=== PATIENT | male | born 1960 | race Caucasian/White ===

== ENCOUNTER 2017-05-04 17:09 | Emergency (ER) | payer OTHER ==
[~2017-05-04] VITALS: Ht 175.3 cm; Wt 86.4 kg
[2017-05-04] MEDS ORDERED: METO-408 PO (17:31)
[2017-05-04] MEDS ORDERED: METH40TA2 PO (17:31)
[2017-05-04] MEDS ORDERED: SULFAMETHOX/TRIMETH DS 800-160 MG/TABLET PO ONE (20:30)
[2017-05-04] MEDS ORDERED: CEPHALEXIN MONOHYDRATE 500 MG CAPSULE PO ONE (20:30)
[2017-05-04 20:54] VITALS: BP 136/85
== END 2017-05-04 21:06 | disposition home or self-care (01) ==
LOC: EMS 17:13
DX: L03.116 Cellulitis of left lower limb (principal); R59.1 Generalized enlarged lymph nodes; I10 Essential (primary) hypertension; F11.90 Opioid use, unspecified, uncomplicated
CPT/HCPCS: 93971; 99284

== ENCOUNTER 2017-09-19 00:47 | Emergency (ER) | payer OTHER ==
[~2017-09-19] VITALS: Ht 175.3 cm; Wt 81.8 kg
[~2017-09-19 00:47] MED LIST: METH40TA2 PO; METO-408 PO
[2017-09-19 03:24] VITALS: BP 135/94
== END 2017-09-19 04:18 | disposition left against medical advice (07) ==
LOC: EMS 00:48
DX: M79.671 Pain in right foot (principal); M79.672 Pain in left foot; I10 Essential (primary) hypertension; F11.90 Opioid use, unspecified, uncomplicated
CPT/HCPCS: 99281

== ENCOUNTER 2018-12-17 01:08 | Emergency (ER) | payer OTHER ==
[~2018-12-17] VITALS: Ht 175.3 cm; Wt 72.7 kg
[2018-12-17] MEDS ORDERED: METO50 PO (01:30)
[2018-12-17 04:36] VITALS: BP 142/96
[2018-12-17] MEDS ORDERED: PERTUSS(ACELL),DIPH,TET VAC/PF 0.5 ML VIAL IM ONE (05:15)
== END 2018-12-17 05:15 | disposition home or self-care (01) ==
LOC: EMS 01:14
DX: S61.212A Laceration without foreign body of right middle finger without damage to nail, initial encounter (principal); I10 Essential (primary) hypertension; F11.90 Opioid use, unspecified, uncomplicated; Z79.899 Other long term (current) drug therapy; W26.8XXA Contact with other sharp object(s), not elsewhere classified, initial encounter; Y93.89 Activity, other specified; Y92.89 Other specified places as the place of occurrence of the external cause; Y99.8 Other external cause status
CPT/HCPCS: 90471; 90715

== ENCOUNTER 2019-09-03 12:15 | Emergency (ER) | payer OTHER ==
[~2019-09-03] VITALS: Ht 165.1 cm; Wt 68.2 kg
[~2019-09-03 12:15] MED LIST changes: -METH40TA2 PO; -METO-408 PO; +METO50 PO
[2019-09-03 13:37] LABS: BASOPHILS % (AUTO) 0.3 % (0.0-2.0); HEMATOCRIT 28.9 % (41-53); HEMOGLOBIN 9.3 g/dL (13.5-17.5); LYMPHOCYTES # (AUTO) 2.1 K/uL (1.0-4.8); LYMPHOCYTES % (AUTO) 44.2 % (22.0-44.0); MEAN CORPUSCULAR HEMOGLOBIN 23.9 pg (26.0-34.0); MEAN CORPUSCULAR HGB CONC 32.2 G/dL (31.0-37.0); MEAN CORPUSCULAR VOLUME 74 fL (80-100); MONOCYTES # (AUTO) 0.4 K/uL (0.1-1.0); MONOCYTES % (AUTO) 8.2 % (2.0-9.0); NEUTROPHILS # (AUTO) 2.2 K/uL (1.8-7.7); NEUTROPHILS % (AUTO) 46.3 % (40.0-70.0); PLATELET COUNT (AUTO) 240 K/uL (150-450); RED CELL DISTRIBUTION WIDTH 18.8 % (11.5-14.5)
[2019-09-03 13:47] LABS: ANION GAP 4 mmol/L (8-16); CALCIUM, TOTAL 8.5 mg/dL (8.8-10.5); CARBON DIOXIDE 30 mmol/L (22-29); CHLORIDE 107 mmol/L (98-107); CREATININE 0.89 mg/dL (0.60-1.30); GLOMERULAR FILTR. RATE CALC > 60 mL/min (>60); GLUCOSE,RANDOM 110 mg/dL (70-110); POTASSIUM 3.6 mmol/L (3.5-5.1); SODIUM SERUM 141 mmol/L (136-145); UREA NITROGEN, BLOOD 12 mg/dL (7-18)
[2019-09-03 13:54] LABS: AMMONIA 25 umol/L (11-32)
[2019-09-03 13:56] LABS: TROPONIN I < 0.02 ng/mL (0.00-0.05)
[2019-09-03 13:57] LABS: LACTIC ACID 1.1 mmol/L (0.4-2.0); PROTHROMBIN TIME 10.6 SEC (9.4-11.6)
[2019-09-03 14:10] LABS: ALANINE AMINOTRANSFERASE 27 U/L (12-78); ALBUMIN 3.2 g/dL (3.4-5.0); ALKALINE PHOSPHATASE 128 U/L (46-116); ASPARTATE AMINOTRANSFERASE 22 U/L (15-37); BILIRUBIN,TOTAL 0.3 mg/dL (0.1-1.0); CREATINE KINASE, TOTAL ONLY 110 U/L (39-308); TOTAL PROTEIN, SERUM 7.2 g/dL (6.4-8.2)
[2019-09-03 15:27] LABS: APPEARANCE,URINE CLEAR (CLEAR); BILIRUBIN,URINE NEGATIVE (NEGATIVE); GLUCOSE, URINE (UA) NEGATIVE (NEGATIVE); KETONES,URINE NEGATIVE (NEGATIVE); LEUKOCYTE ESTERASE ,URINE NEGATIVE (NEGATIVE); NITRATE,URINE NEGATIVE (NEGATIVE); OCCULT BLOOD,URINE NEGATIVE (NEGATIVE); PH,URINE 6.5 (5.0-8.0); PROTEIN,URINE NEGATIVE (NEGATIVE)
[2019-09-03 15:29] LABS: AMPHET/METH SCREEN,URINE POSITIVE (NEGATIVE); BARBITURATE SCREEN, URINE NEGATIVE (NEGATIVE); BENZODIAZEPINES SCREEN,URINE POSITIVE (NEGATIVE); CANNABINOID SCREEN,URINE NEGATIVE (NEGATIVE); COCAINE SCREEN,URINE NEGATIVE (NEGATIVE); METHADONE SCREEN, URINE POSITIVE (NEGATIVE); OPIATE SCREEN,URINE POSITIVE (NEGATIVE)
[2019-09-03 15:30] LABS: PHENCYCLIDINE SCREEN,URINE NEGATIVE (NEGATIVE)
[2019-09-03 18:10] VITALS: BP 130/72
== END 2019-09-03 18:30 | disposition home or self-care (01) ==
LOC: EMS 12:16
DX: T50.991A Poisoning by other drugs, medicaments and biological substances, accidental (unintentional), initial encounter (principal); I10 Essential (primary) hypertension; F15.90 Other stimulant use, unspecified, uncomplicated; F11.90 Opioid use, unspecified, uncomplicated; Z79.899 Other long term (current) drug therapy; Y92.488 Other paved roadways as the place of occurrence of the external cause
CPT/HCPCS: 36415; 70450; 71045; 80053; 80307; 81003; 82140; 82550; 82962; 83605; 84484; 85025; 85610; 85730; 87040; 93005; 99285; G0480